=== PATIENT | female | born 1980 | race African-American/Black ===

== ENCOUNTER 2017-03-22 12:30 | Emergency (ER) | payer MEDICARE, MEDICAID | END 2017-03-22 13:00 | disposition left against medical advice (07) | LOC: ERS 12:30 | DX: Z53.21 Procedure and treatment not carried out due to patient leaving prior to being seen by health care provider (principal) ==

== ENCOUNTER 2017-08-14 12:16 | Emergency (ER) | payer MEDICARE, MEDICAID | END 2017-08-14 13:54 | disposition left against medical advice (07) | LOC: ERS 12:16 | DX: Z53.21 Procedure and treatment not carried out due to patient leaving prior to being seen by health care provider (principal) ==

== ENCOUNTER 2017-08-16 08:01 | Observation (INO) | payer MEDICARE, MEDICAID ==
[2017-08-16 09:13] LABS: #Basophils 0.1 thou/uL (0.0-0.2); #Eosinphils 0.1 thou/uL (0.0-0.7); #Lymphocytes 2.6 thou/uL (1.20-3.40); #Monocytes 0.6 thou/uL (0.11-0.59); #Neutrophils 7.8 thou/uL (1.40-6.50); %Basophils 0.5 % (0.0-1.0); %Eosinophils 0.7 % (0.0-10.0); %Monocytes 5.7 % (0.0-10.0); %Neutrophils 70.1 % (42.0-75.0); Hemoglobin 10.7 g/dL (12.0-16.0); Mean Corpuscular HGB CONC 32.4 g/dL (32.0-36.0); Mean Corpuscular Hemoglobin 24.1 pg (27.0-31.0); Mean Corpuscular Volume 74.2 fl (81.0-99.0); Platelet Count 320 thou/uL (130-400); RBC Distribution Width 15.8 % (11.5-14.5); Red Blood Cell (RBC) Count 4.46 mill/uL (4.20-5.40); White Blood Cell (WBC) Count 11.1 thou/uL (4.8-10.8)
[2017-08-16] MEDS ORDERED: Fentanyl 100 MCG/2 ML VIAL ONE ×2 (09:17→12:19)
[2017-08-16 09:28] LABS: BHCG - Serum Negative (NEGATIVE)
[2017-08-16 09:29] LABS: Pregs Control Background? CLEAR/WHITE (CLR/WHITE); Pregs Control Bar Appear? YES (CONTROL BAR)
[2017-08-16 09:30] LABS: ALT (SGPT) 12 U/L (8-55); AST (SGOT) 15 U/L (5-34); Albumin 3.6 g/dL (3.5-5.0); Alkaline Phosphatase 75 U/L (40-150); Anion Gap 10 mmol/L (10-20); BUN (Urea Nitrogen) 6 mg/dL (7.0-18.7); Bilirubin, Total 0.3 mg/dL (0.2-1.2); CK (CPK) 56 U/L (29-168); Calc. Creatinine Clearance 0 mL/min (70-130); Calcium 8.6 mg/dL (7.8-10.44); Carbon Dioxide 22 mmol/L (22-29); Chloride 106 mmol/L (98-107); Estimated GFR-MDRD Greater than 90; Globulin 4.5 g/dL (2.4-3.5); Glucose 99 mg/dL (70-105); Lipase 12 U/L (8-78); Potassium 3.4 mmol/L (3.5-5.1); Protein, Total 8.1 g/dL (6.0-8.3); Sodium 135 mmol/L (136-145)
[2017-08-16] MEDS ORDERED: Promethazine HCl 25 MG/ML VIAL ONE ×2 (09:37→13:54)
[2017-08-16 09:41] LABS: Hypochromia SLIGHT = 6-15 cells (100X) (0-5/hpf); MDiff Complete? YES; Microcytosis MODERATE=15-30 cells (100X) (0-5/hpf); Polychromasia SLIGHT = 2-3 cells (100X) (0-2/hpf); Target Cells SLIGHT = 2-5 cells (100X) (0-1/hpf)
--- NOTE | 2017-08-16 10:03 | CT ---
CT ABDOMEN AND PELVIS WITH CONTRAST: Date: 08/16/17 HISTORY: Pain. COMPARISON: Ultrasound dated 08/14/17. FINDINGS: There are extensive ground-glass opacities in the lower lobes with subpleural reticulation. There is mild dilatation of the esophagus. There is a cystic mass in the right adnexa. This is similar to the recent ultrasound examination give n differences in technique. This measures approximately 7.7 x 6.2 x 7.0 cm with some peripheral enhan cing septations concerning for low grade malignant process. No dilated loops of large or small bowel. Contrast seen throughout the large bowel. Aortoiliac contour is nonaneurysmal. The liver, gallbladder, and spleen are unremarkable. There are m ultiple hypodensities within the medulla of both kidneys. Skeleton is unremarkable. IMPRESSION: 1. Large right adnexal mass with peripheral enhancing septations. Overall, this mass measures 7.7 x 6.2 x 7.0 cm, concerning for a malignant process. Gynecologic consultation recommended. 2. Normal appendix. 3. Trace free fluid in the pelvis. 4. Multiple bilateral renal hypodensities. Follow-up ultrasound recommended. POS: [facility]
[2017-08-16 10:31] LABS: Bilirubin Negative (Negative); Blood, Urine Negative (Negative); Clarity CLEAR (Clear); Glucose, Urine (Dipstick) Negative (Negative); Leukocyte Negative (Negative); Nitrite Negative (Negative); Protein, Urine (Dipstick) Negative (Neg-Trace); Specific Gravity, Urine 1.022 (1.002-1.036); pH, Urine 6.5 (5.0-9.0)
[2017-08-16] MEDS ORDERED: Ketorolac Tromethamine 30 MG/ML VIAL ONE (12:19)
[2017-08-16] MEDS ORDERED: Lorazepam 2 MG/ML VIAL ONE (12:19)
--- NOTE | 2017-08-16 13:25 | ULT ---
ULTRASOUND PELVIC ULTRASOUND TRANSVAGINAL DOPPLER DUPLEX: DATE: 08-16-17 HISTORY: 36-year-old female with pelvic pain. Abnormal CT. TECHNIQUE: Transabdominal transducer used to evaluate intrapelvic contents using the urinary bladder as an acous tic window. Endovaginal transducer used to visualize intrapelvic contents in greater detail. Color fl ow Doppler and Pulsed Doppler spectral waveform analysis of ovaries. FINDINGS: The uterus is 8.5 x 4 x 3.5 cm. Abutting the right side of the uterus, there is a large thin-walled cystic mass measuring approximate ly 7 x 7 x 6.5 cm. Ovarian tissues is not visualized, either on the right or left, and therefore no f low could be documented in the ovaries. There is a small amount of free fluid in the cul-de-sac. Endo metrial stripe is poorly visualized. No obvious large uterine fibroid is visualized. The large right adnexal cystic mass is better visualized on the CT than on this ultrasound. Further evaluation is aviles ited because of shadowing from bowel gas obscuring portions of the pelvis, and also due to patient's limited ability to tolerate the transvaginal ultrasound due to pain. IMPRESSION: Large right adnexal cystic lesion. Unable to rule in or rule out ovarian torsion. This is better odalis acterized on the CT. Please read the report of that CT. Recommend SEWER HAND consultation. EDILIA Rushing POS: [facility]
[2017-08-16 16:50] VITALS: BMI 29.6
[2017-08-16] MEDS ORDERED: Ondansetron HCl/PF 4 MG/2 ML Vial IVP PRN (17:54)
[2017-08-16] MEDS ORDERED: Ondansetron ODT 4 MG TAB SL PRN (17:54)
[2017-08-16] MEDS ORDERED: Sodium Chloride 0.9% 1,000 ML IV SCH (17:54)
[2017-08-16] MEDS: Fentanyl 100 MCG/2 ML VIAL SLOW IVP PRN ×3 (18:03→22:22)
[2017-08-16] MEDS: Lactated Ringer's 1,000 ML IV SCH (20:17)
[2017-08-16] MEDS ORDERED: ALPRAZolam 1 MG TAB PO SCH (22:15)
[2017-08-16] MEDS: Promethazine 25 MG TAB PO PRN (22:23)
--- NOTE | 2017-08-16 22:23 | CON ---
DATE OF CONSULTATION: 08/16/2017 HISTORY OF PRESENT ILLNESS: The patient is a 36-year-old female with a past medical history signific ant for scleroderma and anxiety, who presented to the ER with a 1-week history of acute abdominal amaury n. She was previously seen at the [facility] several days previous and discharge d. Patient reports the pain came on suddenly and has been unrelenting. She does have a history of p elvic abdominal pain resulting in 2014 and laparoscopic surgery and removal of an adnexal mass on the left side with the pathology reading a serous cystadenoma. Patient in her workup in the emergency r oom was noted to have a 6.5 cm mass on the right side, stemming from the area that she is having pain and HOTBED TRANSFER OPERATOR was contacted. The patient denies any recent trauma, fall, illness, fever, headache, radha st pain, shortness of breath. She has intermittent nausea, for which she has Phenergan at home. Elizabeth kunz takes hydrocodone 10 every 4-6 hours for chronic pain due to the scleroderma and is on Xanax. PAST MEDICAL HISTORY: Significant for scleroderma, anxiety, and history of left adnexal mass with pe lvic pain. PAST SURGICAL HISTORY: The patient had laparoscopic left salpingo-oophorectomy, multiple amputations of digits and parts of digits due to complications of her scleroderma, 2 previous C-sections, and garces s had multiple GI endoscopies with biopsy. ALLERGIES: DEMEROL, MORPHINE, TOMATOES, and TRAMADOL. The patient reports that she had a code blue called on her when she took DEMEROL and had seizures with MORPHINE and TRAMADOL. CURRENT MEDICATIONS: Phenergan 25 mg p.o. p.r.n., hydrocodone 10/325 one tablet every 6 hours as nee ded for pain and Xanax 2 mg p.o. t.i.d. REVIEW OF SYSTEMS: Per HPI. PHYSICAL EXAMINATION: VITAL SIGNS: Blood pressure 125/71, temperature 98.3, pulse of 93, respiratory rate 18, O2 sats of 9 8%. GENERAL: She appeared calm, but very concerned that she was given a preliminary discussion about the possibility of malignancy due to radiologic dictation. The patient, otherwise, was cooperative and pleasant to interact with. HEAD: Normocephalic, atraumatic. LUNGS: Clear to auscultation bilaterally. HEART: Regular rate and rhythm. ABDOMEN: A little protuberant and a little firm with a little tenderness in the upper quadrants main ly in the lower quadrants, particularly the right side. GENITOURINARY EXAM: Has been deferred. LABORATORY FINDINGS: White count is 11.1, hemoglobin 10.7, hematocrit 33.1, platelets of 320,000. S odium of 135, potassium of 3.4, chloride of 106, BUN of 6, creatinine of 0.67, calcium of 8.6, AST of 15, ALT of 12. Lipase of 12. CA-125 of 7.3. HCG negative. Urinalysis negative for protein, keton es, nitrites, or leukocyte esterase. Pelvic CT shows a large right adnexal mass with peripheral enha ncing septations and pelvic ultrasound shows a right adnexal cyst about 7 cm with a small amount of f ree fluid. ASSESSMENT AND PLAN: The patient is a 36-year-old female with a 1-week history of pelvic pain. The patient has had multiple visits to the ER. Given the CA-125 of 7.5 and an ultrasound that shows a si mple cystic structure, the likelihood of malignancy is very low. Reviewing the previous surgical not es and pathology, this process likely is a repeat of her previous pelvic pain and pathology a serous cystadenoma. Patient has been admitted for pain control and she does not appear to have added contro l pain and is able to ambulate, go to the bathroom, and have a fairly normal conversation without any little difficulty. I have spoken to her primary HOTBED TRANSFER OPERATOR, Dr. Echols, who performed surgery a couple years ago and have discussed her case. She has agreed to evaluate her tomorrow morning for possible surgery. I have placed the patient on the surgical schedule and made her n.p.o. tonight. Dr. Dooley will be the HOTBED TRANSFER OPERATOR hospitalist on duty tomorrow for backup to assist Dr. Echols as needed.
[2017-08-17] MEDS: Fentanyl 100 MCG/2 ML VIAL SLOW IVP PRN ×2 (01:36→04:15)
[2017-08-17] MEDS: Lactated Ringer's 1,000 ML IV SCH ×3 (03:57→21:17)
[2017-08-17] MEDS ORDERED: Fentanyl 100 MCG/2 ML VIAL SLOW IVP PRN (07:51)
--- NOTE | 2017-08-17 08:09 | PDOC.EVN ---
Event Note - Event Note Event Note: Ms Walden is a 36 y/o AAF well known to me. with scleroderma-skin only. Previous LSO for large left adnexal cyst in 2014. Right ovary was normal at that time except for inflammatory changes. Noted to have recfent pain and 7 cm simp,le cystic right adnexal mass. CA-125 7... She is requiring fentanyl for pain. Plan is to proceed with diagnostic laprascopy with rempvsl of cystic structure and lysis of adhesions if indicated. ovarian preservation will be attempted if possible.
[2017-08-17] MEDS ORDERED: CEFAZOLIN/Water 2 GM/20 ML SYRINGE SLOW IVP SCH (08:15)
[2017-08-17] MEDS ORDERED: CEFAZOLIN/Water 2 GM/20 ML SYRINGE ONE (08:57)
[2017-08-17] MEDS ORDERED: ALPRAZolam 1 MG TAB PO SCH ×2 (09:00→18:45)
[2017-08-17] MEDS ORDERED: Bupivacaine HCl 0.5%/Epinephrine 1:200,000/PF 30 ml Vial ONE (09:30)
[2017-08-17] MEDS ORDERED: HYDROmorphone 0.5 MG/0.5 ML SYRINGE ONE ×3 (09:35→12:55)
[2017-08-17] MEDS ORDERED: Fentanyl 100 MCG/2 ML VIAL ONE (09:35)
[2017-08-17] MEDS ORDERED: Acetaminophen/Codeine 30-300mg Tablet PO PRN (11:32)
[2017-08-17] MEDS ORDERED: Promethazine HCl 25 MG/ML VIAL IM PRN ×2 (11:38→12:31)
[2017-08-17] MEDS ORDERED: Ondansetron HCl/PF 4 MG/2 ML Vial IVP PRN ×2 (11:38→12:31)
[2017-08-17] MEDS ORDERED: HYDROmorphone 2 MG/ML VIAL SLOW IVP PRN (11:38)
[2017-08-17] MEDS ORDERED: Promethazine HCl 25 MG/ML VIAL SLOW IVP PRN (11:38)
--- NOTE | 2017-08-17 12:11 | OP ---
DATE OF PROCEDURE: 08/17/2017 PREOPERATIVE DIAGNOSES: 1. A 36-year-old -[place] female with previous LSO for a large adnexal cyst now at 7 cm righ t adnexal cyst with acute pelvic pain. 2. Medical history significant for scleroderma. POSTOPERATIVE DIAGNOSES: 1. A 36-year-old -[place] female with previous LSO for a large adnexal cyst now at 7 cm righ t adnexal cyst with acute pelvic pain. 2. Medical history significant for scleroderma. PROCEDURES PERFORMED: 1. Diagnostic laparoscopy with lysis of adhesions. 2. Removal of right adnexal cyst with ovary and tube complex. SURGEON: Taryn Echols M.D. C WPF DEVELOPER SURGEON: Chapin Dooley M.D. ANESTHESIA: General endotracheal. ESTIMATED BLOOD LOSS: Less than 10 mL. COMPLICATIONS: None. COUNTS: Correct x2. ANTIBIOTICS: Two grams of Ancef carton making machine operator to the operating room. PATHOLOGY: Right adnexal cyst, complex. FINDINGS: 1. Left tube and ovary surgically absent from prior surgery. 2. Omental adhesions to the lower abdominal wall, status post adhesiolysis. 3. Right adnexal mass with complexity of cystic change in the ovary and tube complex with edema. No excrescences or papillations are noted. No abnormal fluid in the pelvis noted. 4. Serous yellowish fluid drained from the adnexal cyst. The adnexal cyst noted with no bloody comp onent. DISPOSITION: Recovery room, stable. DESCRIPTION OF OPERATIVE PROCEDURE: The patient previously received informed consent in regards to s john. She is taken back to the operating room where she received a general endotracheal anesthetic agent. She was placed in the dorsal lithotomy position with use of Ajith stirrups, prepped and drap ed in usual sterile fashion. Talamantes catheter was placed. A sidearm speculum was inserted in the vagi na. Anterior lip of cervix was grasped with single tooth tenaculum. A Hulka uterine manipulator was then placed. Tenaculum and speculum removed. Attention was then turned to the abdomen where perspe ctive trocar sites were infiltrated with 0.5% Marcaine with epinephrine. A supraumbilical incision w as made approximately 10 mm vertical direction and Veress needle was entered into the peritoneal cavi ty. There was some elevated pressure noted and patient's abdomen seemed already somewhat distended. Therefore, direct entry with Visiport was carried out. The layers were seen as through the fat down to the fascia and then maneuvered into the peritoneal cavity and the abdomen was then insufflated in this manner. The 5 mm scope was then replaced into the supraumbilical trocar site and inspection of the bowel beneath the area was negative for any bowel injury or any bleeding noted. An additional r ight lower quadrant 5 mm trocar was placed under direct visualization and a left lower quadrant troca r was placed in left under direct visualization. Atraumatic grasper was then utilized to grasp the a nterior wall of omental adhesions through the left port and then my assistant pastry chef then used EndoShears wi th cautery to dissect the adhesions of the omentum and atraumatic planes with cautery and direct cutt ing releasing the adhesions offering better visualization in the operative site. The uterus was elev ated with a manipulator and previously mentioned findings were noted. There essentially appeared to be no normal appearing ovarian tissue visualized and the tube was noted to be edematous congealed wit h the right adnexal cyst. Therefore, the cyst was decompressed to aid for lateralization and mobiliz ation against the right pelvic sidewall under direct visualization and needle was placed in the depen dent portion of the cyst and 30 mL of serous fluid was aspirated under direct visualization. This ma de the cyst more floppy and more amenable to mobilization. My assistant pastry chef then grasped the adnexal cys t with an atraumatic grasper and then a LigaSure device was placed in the left lower quadrant port. The uteroovarian ligament region of the cyst was then coagulated and transected along with portion of the IP ligament component. Serial coagulation and transection and removed the cyst in its entirety. The pedicle line was noted to be hemostatic. There may have been some residual normal appearing ad nexal ovarian tissue remaining and this was left behind since hemostasis was confirmed. An 11 mm trocar was placed in the midline suprapubic site just left of the midline under direct visua lization. The Endobag was then placed through this and then the specimen was placed in the Endobag. The incision over the 11 mm skin incision was extended enabling us to extend the fascial incision wi th my finger to allow for removal of the Endobag with the contents intact. GraNee trocar closure sys tem device was then utilized to close the midline trocar defect under direct visualization with good approximation of the fascia with 0 Vicryl. The excess carbon dioxide gas was released after the pelv is had been irrigated and suctioned again confirming hemostasis. The trocar sites were then closed i n the skin ports with 4-0 Monocryl subcuticular with Dermabond. The Procurify uterine manipulator was re moved. The patient was awakened from anesthesia and transferred to the recovery in stable condition.
[2017-08-17] MEDS ORDERED: diphenhydrAMINE 50 MG/ML VIAL IM PRN (12:31)
[2017-08-17] MEDS ORDERED: Zolpidem Tartrate 5 MG TAB PO PRN (12:31)
[2017-08-17] MEDS ORDERED: diphenhydrAMINE 25 MG CAP PO PRN (12:31)
[2017-08-17] MEDS ORDERED: diphenhydrAMINE 50 MG/ML VIAL IVP PRN (12:31)
[2017-08-17] MEDS ORDERED: Naloxone HCl 0.4 mg/ml Vial IV PRN (12:31)
[2017-08-17] MEDS ORDERED: Fentanyl 5000 MCG/250 ML CADD IVPB PRN (12:31)
[2017-08-17] MEDS ORDERED: Communication Order-Pharmacy FS SCH (12:45)
[2017-08-17] MEDS ORDERED: fentaNYL Citrate/PF 2,000 MCG in Sodium Chloride 0.9% 60 ML IV PRN (12:45)
--- NOTE | 2017-08-17 14:32 | HP ---
DATE OF ADMISSION: 08/16/2017 CHIEF COMPLAINT: Abdominal pain. HISTORY OF PRESENT ILLNESS: Ms. Walden is a 36-year-old -[place] female with past medical his tory of scleroderma, chronic pain, came because of abdominal pain started a week ago. The patient st ates the pain is mainly in the right side and also in suprapubic area. The patient states she had a left ovarian cyst removed in the past, but this pain started 1 week ago and became worse now. She wa s seen in the [facility] and she was evaluated and released. The pain was gettin g worse. She also has some nausea and no vomiting. She claims she is not able to sleep because of t his pain, but no fever, no shortness of breath, no cough. The patient came to the [facility] e she was evaluated and she had abdominopelvic CT and ultrasound done, which showed right adnexal mas s, which is cystic enlarged measuring around 7 x 7 cm. Radiologist felt it is concerning for maligna nt process, so patient is being admitted for further evaluation and management. PAST MEDICAL HISTORY: 1. Long history of scleroderma. 2. Chronic pain. 3. Anxiety disorder. 4. History of left adnexal mass. PAST SURGICAL HISTORY: Status post laparoscopic left salpingo-oophorectomy 2 years ago, status post multiple amputations of digits and parts of digits due to complications of scleroderma, status post 2 C-sections, status post GI endoscopy with a biopsy. CURRENT MEDICATIONS: The patient is on Phenergan p.r.n., hydrocodone 10/325 q.i.d. p.r.n., Xanax 2 m g t.i.d. ALLERGIES: TRAMADOL, MORPHINE, DEMEROL. She states she has seizures with DEMEROL and TRAMADOL. FAMILY HISTORY: Nothing of interest. SOCIAL HISTORY: The patient lives with family. No history of smoking. No history of alcohol. REVIEW OF SYSTEMS: CARDIOVASCULAR: No chest pain. No shortness of breath. RESPIRATORY: No fever or cough. GASTROINTESTINAL: Has abdominal pain and nausea, no vomiting. CENTRAL NERVOUS SYSTEM: N o headache, no dizziness. PHYSICAL EXAMINATION: GENERAL: The patient is alert, awake, oriented x3. VITAL SIGNS: Temperature 98, pulse 93, respirations 20, blood pressure 120/70. HEENT: Head is normocephalic, atraumatic. Pupils are equal and reactive to light. Nasopharynx is p megan and dry. Hard and soft palate, no lesions. SKIN: Skin turgor decreased. NECK: Supple. No JVD. LUNGS: Bilateral air entry, no rales, no rhonchi. HEART: S1 and S2 regular. ABDOMEN: Soft. There is tenderness present in the right lower quadrant. Bowel sounds present. CENTRAL NERVOUS SYSTEM: No focal deficits. LABORATORY DATA AND IMAGING DATA: CBC shows WBC 11, hemoglobin 10.7, hematocrit 33, and platelets 32 0. Metabolic panel; sodium 135, potassium 3.4, chloride 106, CO2 of 20, urea nitrogen 6, creatinine 0.6, glucose 99. Urinalysis negative. CT of the abdomen showed large adnexal mass measuring 7.3 x 7 .97 cm. Ultrasound of the abdomen and pelvis also confirmed the cystic mass in the right adnexa. ASSESSMENT: 1. Right ovarian mass, cystic, rule out malignancy, severe intractable abdominal pain. 2. Scleroderma. 3. Chronic pain. 4. Anxiety disorder. PLAN: 1. Vital signs q.4 hours. 2. Activity: As tolerated. 3. Allergies: Multiple including MORPHINE, TRAMADOL, DEMEROL. 4. IV fluids, D5 half at 80 mL per hour, fentanyl IVP 100 mg q.12 hours p.r.n., and continue home me dications. 5. Diet: NPO. 6. Activity: As tolerated. 7. ARCHITECTURE INTERN consult.
[2017-08-17] MEDS ORDERED: Lidocaine 1% PF 5 ML VIAL ONE (15:34)
[2017-08-17] MEDS ORDERED: PROPOFOL 200 MG/20 ML VIAL ONE (15:34)
[2017-08-17] MEDS ORDERED: Glycopyrrolate 0.2 MG/ML 5 ML SYRINGE ONE (15:34)
[2017-08-17] MEDS ORDERED: Ondansetron HCl/PF 4 MG/2 ML Vial ONE (15:34)
[2017-08-17] MEDS: Potassium Chloride 20 MEQ TAB PO SCH ×2 (16:20→19:48)
[2017-08-17] MEDS ORDERED: Acetaminophen 500 MG TAB PO PRN (16:53)
[2017-08-17] MEDS: Ketorolac Tromethamine 30 MG/ML VIAL IVP PRN (17:31)
[2017-08-17] MEDS: Promethazine HCl 25 MG/ML VIAL SLOW IVP PRN ×2 (17:32→22:30)
[2017-08-18] MEDS: Ketorolac Tromethamine 30 MG/ML VIAL IVP PRN (01:31)
[2017-08-18] MEDS: Promethazine HCl 25 MG/ML VIAL SLOW IVP PRN ×4 (02:34→21:19)
[2017-08-18 05:16] LABS: Anion Gap 10 mmol/L (10-20); BUN (Urea Nitrogen) 5 mg/dL (7.0-18.7); Calc. Creatinine Clearance 131 mL/min (70-130); Calcium 8.7 mg/dL (7.8-10.44); Carbon Dioxide 23 mmol/L (22-29); Chloride 107 mmol/L (98-107); Estimated GFR-MDRD Greater than 90; Glucose 95 mg/dL (70-105); Potassium 3.4 mmol/L (3.5-5.1); Sodium 137 mmol/L (136-145)
[2017-08-18 05:37] LABS: Eosinophils 2 % (0-10); Hemoglobin 9.6 g/dL (12.0-16.0); Lymphocytes 35 % (21-51); MDiff Complete? YES; Mean Corpuscular HGB CONC 33.5 g/dL (32.0-36.0); Mean Corpuscular Hemoglobin 24.2 pg (27.0-31.0); Mean Corpuscular Volume 72.4 fl (81.0-99.0); Mean Platelet Volume 9.1 fL (7.4-10.4); Monocytes 4 % (0-10); Neutrophil 58 % (42-75); Platelet Count 273 thou/uL (130-400); RBC Distribution Width 15.8 % (11.5-14.5); Red Blood Cell (RBC) Count 3.97 mill/uL (4.20-5.40); White Blood Cell (WBC) Count 8.9 thou/uL (4.8-10.8)
[2017-08-18] MEDS: ALPRAZolam 1 MG TAB PO SCH ×4 (07:35→21:19)
--- NOTE | 2017-08-18 09:32 | PDOC.EVN ---
Event Note - Event Note Event Note: States she feels better this AM. RLQ pain resolved. Ambulating and voiding. Tolerating liquids/solids ok. reports passing some flatus. O: Temp 98.1/P 79/R18/133/86 abdomen-trocar sites Clean/dry/intact. no rebound. hypoactive bowel sound. A/P:post op day 1 from laparoscopic RSO. recovering satisfactoriliy. Increase ambulation. Await full return of bowel function. Possible d/ch later this PM. Pain control with PCP Dr Abraham since he manages her chronic pain issues due to her scleroderma history. If discharged to day--will f/u with post op check in 2 weeks.
[2017-08-18] MEDS ORDERED: Potassium Chloride 20 MEQ in Sodium Chloride 0.9% 250 ML 250 ML IVPB SCH (11:00)
[2017-08-18] MEDS: Promethazine 25 MG TAB PO PRN (12:05)
[2017-08-18] MEDS ORDERED: Potassium Chloride 20 MEQ TAB PO SCH (12:30)
[2017-08-19] MEDS: Promethazine HCl 25 MG/ML VIAL SLOW IVP PRN ×2 (01:51→07:38)
[2017-08-19 07:54] VITALS: BP 135/92; TEMP 98.7
[2017-08-19] MEDS: ALPRAZolam 1 MG TAB PO SCH (08:54)
[2017-08-19] MEDS ORDERED: HYDROcodone/Acetaminophen 10/325 mg Tablet PO PRN ×2 (09:23)
--- NOTE | 2017-08-20 14:16 | DIS ---
DATE OF ADMISSION: 08/16/2017 DATE OF DISCHARGE: 08/19/2017 ADMITTING DIAGNOSES: 1. Right ovarian mass, cystic, rule out malignancy. 2. Severe intractable abdominal pain. 3. Longstanding scleroderma. 4. Chronic pain due to that. 5. Anxiety disorder. FINAL DIAGNOSES: 1. Right ovarian mass status post removal of right adnexal cyst with ovary and tube complex. 2. Status post lysis of adhesion. 3. Intractable abdominal pain, improved. 4. Longstanding scleroderma. 5. Chronic pain. 6. Anxiety disorder. BRIEF SUMMARY OF HOSPITAL COURSE: Ms. Walden is a 36-year-old -[place] female admitted [facility] of acute abdominal pain going on for few days. The patient has severe intractable abdominal pain, found to have right ovarian cystic mass and she was started on IV morphine to control the pain. She was seen by a retrofit installer, who suggested laparoscopic surgery following day. The patient was kept n .p.o. The patient underwent surgery, laparoscopic removal of right ovary cyst along with the ovary a nd tube complex. The patient also had lysis of adhesions. Postoperatively, the patient kept on pain management and PATHOLOGY TECHNICIAN pump for a day and after which it was discontinued and abdominal pain much improv ed. Her pain was improving and the patient is being discharged home. At the time of discharge, she was stable. Her vital signs were stable. Lungs clear. Heart sounds are regular. Abdomen is soft, nontender. Bowel sounds present. DISCHARGE MEDICATIONS: Include Phenergan p.r.n., Xanax 2 mg t.i.d., [place] 10/325 q.i.d. p.r.n., Ambi en 5 mg at bedtime p.r.n. FOLLOWUP: The patient will follow with retrofit installer in couple of weeks and then come to my office in 2 weeks.
== END 2017-08-19 11:42 | disposition home or self-care (01) ==
LOC: EEVIPCON 08:01 → ERS 08:01 → 2SW 16:25
PROVIDERS: ADMIT Internal Medicine; ATTEND Internal Medicine
PROC: 0DNW4ZZ Release Peritoneum, Percutaneous Endoscopic Approach (ICD-10-PCS; principal; 2017-08-16)
PROC: 0UT04ZZ Resection of Right Ovary, Percutaneous Endoscopic Approach (ICD-10-PCS; 2017-08-16)
PROC: 0UT54ZZ Resection of Right Fallopian Tube, Percutaneous Endoscopic Approach (ICD-10-PCS; 2017-08-16)
DX: N83.11 Corpus luteum cyst of right ovary (principal); N83.8 Other noninflammatory disorders of ovary, fallopian tube and broad ligament; M34.9 Systemic sclerosis, unspecified; K66.0 Peritoneal adhesions (postprocedural) (postinfection); G89.29 Other chronic pain; F41.9 Anxiety disorder, unspecified; Z79.899 Other long term (current) drug therapy; Z88.5 Allergy status to narcotic agent; Z91.018 Allergy to other foods; Z90.79 Acquired absence of other genital organ(s); Z90.721 Acquired absence of ovaries, unilateral; Z98.891 History of uterine scar from previous surgery; Z98.890 Other specified postprocedural states
CPT/HCPCS: 49329; 58661; 74177; 76830; 76856; 80048; 80053; 81003; 82550; 83690; 84703; 85025 ×2; 86304; 86850; 86900; 86901; 88305; 96361 ×3; 96365; 96366; 96375; 96376 ×5; 99285; G0378 ×4; J3010 ×2; 36415; J0670; J1170; J1885; J2001; J2060; J2405; J2550; J2704; J3480; J7050; J7120

== ENCOUNTER 2018-03-29 10:28 | Day surgery (SDC) | payer MEDICARE, MEDICAID ==
[~2018-03-29 10:28] MED LIST: ISOVUE-370 76%-LOCM 1 ML ONE
[2018-03-29] MEDS ORDERED: Fentanyl 100 MCG/2 ML VIAL ONE ×5 (11:17→18:11)
[2018-03-29] MEDS ORDERED: Promethazine HCl 25 MG/ML VIAL ONE ×2 (11:18→17:19)
[2018-03-29 11:29] LABS: Bilirubin Negative (Negative); Blood, Urine Negative (Negative); Clarity CLEAR (Clear); Glucose, Urine (Dipstick) Negative (Negative); Leukocyte Negative (Negative); Nitrite Negative (Negative); Protein, Urine (Dipstick) Negative (Neg-Trace); Specific Gravity, Urine 1.007 (1.002-1.036); Urobilinogen 0.2 mg/dL (0.2-1.0); pH, Urine 7.5 (5.0-9.0)
[2018-03-29 11:32] LABS: Pregnancy Test - Urine (BHCG) Negative (Negative); Pregu Control Background? CLEAR/WHITE (CLR/WHITE); Pregu Control Bar Appear? YES (CONTROL BAR); Specific Gravity 1.007 (1.002-1.036)
[2018-03-29] MEDS ORDERED: Lidocaine 1% PF 5 ML VIAL ONE (11:44)
[2018-03-29] MEDS ORDERED: Glycopyrrolate 0.2 MG/ML 5 ML SYRINGE ONE (11:44)
[2018-03-29] MEDS ORDERED: Ketorolac Tromethamine 30 MG/ML VIAL ONE (11:44)
[2018-03-29] MEDS ORDERED: PROPOFOL 200 MG/20 ML VIAL ONE (11:44)
[2018-03-29] MEDS ORDERED: Ondansetron PF 4 MG/2 ML Vial ONE ×2 (11:44→17:07)
[2018-03-29 11:52] LABS: #Basophils 0.1 thou/uL (0.0-0.2); #Lymphocytes 1.7 thou/uL (1.20-3.40); #Monocytes 0.7 thou/uL (0.11-0.59); #Neutrophils 13.6 thou/uL (1.40-6.50); %Basophils 0.4 % (0.0-1.0); %Eosinophils 0.2 % (0.0-10.0); %Lymphocytes 10.5 % (21.0-51.0); %Monocytes 4.1 % (0.0-10.0); %Neutrophils 84.7 % (42.0-75.0); Mean Corpuscular HGB CONC 32.8 g/dL (32.0-36.0); Mean Corpuscular Hemoglobin 25.3 pg (27.0-31.0); Mean Corpuscular Volume 77.1 fL (78.0-98.0); Mean Platelet Volume 8.5 fL (7.4-10.4); Platelet Count 288 thou/uL (130-400); RBC Distribution Width 14.8 % (11.5-14.5); Red Blood Cell (RBC) Count 4.35 mill/uL (4.20-5.40); White Blood Cell (WBC) Count 16.1 thou/uL (4.8-10.8)
[2018-03-29 12:00] LABS: BHCG - Serum Negative (NEGATIVE); Pregs Control Background? CLEAR/WHITE (CLR/WHITE); Pregs Control Bar Appear? YES (CONTROL BAR)
[2018-03-29 12:07] LABS: ALT (SGPT) 17 U/L (8-55); AST (SGOT) 20 U/L (5-34); Albumin 3.5 g/dL (3.5-5.0); Alkaline Phosphatase 74 U/L (40-150); Anion Gap 12 mmol/L (10-20); BUN (Urea Nitrogen) 6 mg/dL (7.0-18.7); Bilirubin, Total 0.4 mg/dL (0.2-1.2); Calc. Creatinine Clearance 0 mL/min (70-130); Calcium 8.6 mg/dL (7.8-10.44); Carbon Dioxide 20 mmol/L (22-29); Chloride 107 mmol/L (98-107); Estimated GFR-MDRD Greater than 90; Globulin 4.8 g/dL (2.4-3.5); Glucose 103 mg/dL (70-105); Lipase 10 U/L (8-78); Potassium 4.1 mmol/L (3.5-5.1); Protein, Total 8.3 g/dL (6.0-8.3); Sodium 135 mmol/L (136-145)
[2018-03-29] MEDS ORDERED: Piperacillin/Tazobactam 4.5 GM VIAL ONE (13:10)
--- NOTE | 2018-03-29 15:27 | CT ---
CT ABDOMEN AND PELVIS WITH CONTRAST: HISTORY: Abdominal pain. COMPARISON: CT 08/16/2017. FINDINGS: There is abnormal articular peripheral articulation in the lower lobes concerning for UIP pattern of pulmonary fibrosis. There is mild dilatation of the esophagus. There are surgical clips along the 2nd portion of the duodenum. Liver, gallbladder, spleen, and pancreas are all unremarkable. The appendix is dilated with periappendiceal inflammation. The adjacent right ureter is also inflame d. The appendix measures up to 9 mm. Small ileocolic lymph nodes are present. Small septated left adnexal hypodensity is present. No dilated loops of large or small bowel. There is mild hyperenhancement of the mucosa of the sigmoi d colon. There are multiple subtle left-sided renal hypodensities too small to fully characterize. No adenopa thy. IMPRESSION: Acute appendicitis without definite evidence of rupture. The appendix extends medially from the cecu m then turns caudad with tip just along the anterior margin of the external iliac artery. POS: [facility]
[2018-03-29] MEDS ORDERED: Bupivacaine/Epinephrine 0.25% 30 ML VIAL ONE (15:38)
--- NOTE | 2018-03-29 18:52 | HP ---
CHIEF COMPLAINT: Right lower quadrant pain. HISTORY OF PRESENT ILLNESS: This is a 37-year-old female with a one-day history of pain in right low er quadrant described as sharp, 8/10. She previously had left and right ovarian cyst removed. The p ain is similar, although more severe in the right side, associated with nausea, no vomiting, no rutledge e in stools. She does have chronic diffuse pain secondary to her scleroderma and takes Nowata 4 times a day and she is on contract with Dr. Babcock for that. PAST MEDICAL HISTORY: Scleroderma, chronic pain, arthritis, seizures. PAST SURGICAL HISTORY: x2, ovarian cyst. MEDICINES TAKEN DAILY: Nowata, Xanax, Phenergan. ALLERGIES: DEMEROL, MORPHINE, TOMATO, TRAMADOL. SOCIAL HISTORY: No smoking, alcohol, or other drugs. REVIEW OF SYSTEMS: Otherwise, negative unless described above. PHYSICAL EXAMINATION: VITAL SIGNS: Blood pressure is 139/92, pulse 106, respirations 22. She is afebrile. HEENT: Sclerae are anicteric. Oropharynx clear. NECK: No lymphadenopathy. CHEST: Clear. HEART: Regular rate and rhythm. ABDOMEN: Soft, tender in right lower quadrant, localized guarding, no rebound, no abdominal hernias. EXTREMITIES: No ischemia or edema to extremities. LABORATORY DATA: Sodium 135, potassium 4.1, creatinine 0.73. White cell count is 16, hemoglobin of 11. CT scan shows acute appendicitis. ASSESSMENT: Acute appendicitis. PLAN: Laparoscopic appendectomy. Risks, benefits, alternatives discussed. She gave consent. We wi ll do this today.
--- NOTE | 2018-03-29 18:54 | OP ---
DATE OF PROCEDURE: 03/29/2018 PREOPERATIVE DIAGNOSIS: Acute appendicitis. POSTOPERATIVE DIAGNOSIS: Acute appendicitis. PROCEDURE: Laparoscopic appendectomy. SURGEON: Jona Meyers M.D. ANESTHESIA: General. ESTIMATED BLOOD LOSS: None. COMPLICATIONS: None. SPECIMEN: Appendix. FINDINGS: Appendicitis. TECHNIQUE: Patient was taken to the operating room and placed on supine table. After general anesth etic was obtained, the abdomen was prepped and draped in a sterile fashion. A Talamantes catheter had bee n placed. Curved incision was made above the umbilicus. Cautery was used to dissect down to and sco re the fascia. Abdominal cavity was entered bluntly using a Beatriz clamp. Holding stitch of PDS was placed on each side of the fascia. Alex trocar was placed. High-flow pneumoperitoneum was obtaine d. A suprapubic 5 mm port and left lower quadrant port were placed under direct visualization. The cecum was rolled over to reveal acute appendicitis. A window was made at the base of the appendix an d mesoappendix Laparoscopic stapler was fired across the base of the appendix. A vascular reload fi red across the mesoappendix. Appendix was placed in an Endocatch bag and brought out through the Has son. All port sites were infiltrated using local anesthetic. All ports were removed under direct vi sualization without bleeding. The pneumoperitoneum was let down. PDS was used to close the fascial defect above the umbilicus. All incisions were irrigated and closed using 4-0 Monocryl and Dermabond . Patient went to recovery room in stable condition. All instruments counts, needle counts, and lap counts were correct.
== END 2018-03-29 18:55 | disposition home or self-care (01) ==
LOC: ERS 10:28 → SDC 14:35
PROVIDERS: ATTEND Surgery
PROC: 0DTJ4ZZ Resection of Appendix, Percutaneous Endoscopic Approach (ICD-10-PCS; principal; 2018-03-29)
DX: K35.80 Unspecified acute appendicitis (principal); M19.90 Unspecified osteoarthritis, unspecified site; R56.9 Unspecified convulsions; M34.9 Systemic sclerosis, unspecified; Z79.899 Other long term (current) drug therapy; Z88.5 Allergy status to narcotic agent; Z91.018 Allergy to other foods
CPT/HCPCS: 36415; 74177; 80053; 81003; 81025; 83690; 84703; 85025; 87086; 88304; 96365; 96367; 96375; 96376; J1885; J2001; J2405; J2543; J2550; J2704; J3010

== ENCOUNTER 2018-07-04 10:43 | Emergency (ER) | payer MEDICARE, MEDICAID ==
[2018-07-04] MEDS ORDERED: Aspirin Chewable 81 MG TAB ONE (12:28)
[2018-07-04] MEDS ORDERED: Lorazepam 2 MG/ML VIAL ONE (12:29)
[2018-07-04 12:33] LABS: Hemoglobin 11.1 g/dL (12.0-16.0); Mean Corpuscular HGB CONC 32.7 g/dL (32.0-36.0); Mean Corpuscular Hemoglobin 24.1 pg (27.0-31.0); Mean Corpuscular Volume 73.5 fL (78.0-98.0); Mean Platelet Volume 8.4 fL (7.4-10.4); Platelet Count 309 thou/uL (130-400); RBC Distribution Width 14.6 % (11.5-14.5); Red Blood Cell (RBC) Count 4.62 mill/uL (4.20-5.40); White Blood Cell (WBC) Count 8.3 thou/uL (4.8-10.8)
[2018-07-04 12:39] LABS: BHCG - Serum Negative (NEGATIVE); Pregs Control Background? CLEAR/WHITE (CLR/WHITE); Pregs Control Bar Appear? YES (CONTROL BAR)
[2018-07-04 12:53] LABS: #Lymphocytes 2.1 thou/uL (1.20-3.40); #Monocytes 0.4 thou/uL (0.11-0.59); #Neutrophils 5.8 thou/uL (1.40-6.50); %Basophils 0.2 % (0.0-1.0); %Eosinophils 0.4 % (0.0-10.0); %Lymphocytes 25.2 % (21.0-51.0); %Monocytes 4.7 % (0.0-10.0); %Neutrophils 69.5 % (42.0-75.0); ALT (SGPT) 22 U/L (8-55); AST (SGOT) 26 U/L (5-34); Albumin 3.8 g/dL (3.5-5.0); Alkaline Phosphatase 83 U/L (40-150); Anion Gap 12 mmol/L (10-20); Anisocytosis SLIGHT = 6-15 cells (100X) (0-5/hpf); BUN (Urea Nitrogen) 8 mg/dL (7.0-18.7); Bilirubin, Total 0.3 mg/dL (0.2-1.2); Calc. Creatinine Clearance 0 mL/min (70-130); Calcium 8.9 mg/dL (7.8-10.44); Carbon Dioxide 23 mmol/L (22-29); Chloride 106 mmol/L (98-107); Estimated GFR-MDRD Greater than 90; Globulin 4.8 g/dL (2.4-3.5); Glucose 88 mg/dL (70-105); Hypochromia SLIGHT = 6-15 cells (100X) (0-5/hpf); MDiff Complete? YES; Microcytosis SLIGHT = 6-15 cells (100X) (0-5/hpf); Platelet Morphology Comment Appears Adequate; Potassium 3.9 mmol/L (3.5-5.1); Protein, Total 8.6 g/dL (6.0-8.3); Sodium 137 mmol/L (136-145)
--- NOTE | 2018-07-04 14:54 | CT ---
CT AORTOGRAM CHEST AND ABDOMEN WITH CONTRAST: Date: 07/04/18 Multiple axial tomograms obtained through the chest and abdomen following an aortogram protocol with multiplanar reconstructions and 3D postprocessing. INDICATION: Chest pain. FINDINGS: No evidence of thoracic or abdominal aortic dissection. No evidence of thoracic aortic or abdominal a ortic aneurysm. Aortic branches, including celiac artery, superior mesenteric artery, and renal arteries appear unrem arkable. Aortic bifurcation is unremarkable. No evidence of atherosclerotic change. The lung garner show chronic parenchymal changes which are prominent for patient's age. Peripheral in terstitial thickening and early bled formation is seen along the pleural surfaces bilaterally with bl ebs and pleural thickening with evidence of early honeycombing in the posterior lung bases. The liver, spleen, and pancreas appear unremarkable given the arterial phase enhancement. Bowel loops are unremarkable. Adrenal glands are unremarkable. There are two low density lesions in the left kidney suggesting cyst s, measuring approximately 1.5 cm. Mild incomplete rotation of the left kidney. IMPRESSION: 1. No evidence of thoracic or abdominal aortic dissection or aneurysm. 2. Prominent chronic lung parenchymal changes for patient's age. 3. There are two cystic lesions in the left kidney. POS: [facility]
== END 2018-07-04 14:22 | disposition home or self-care (01) ==
LOC: ERS 10:43
DX: R07.89 Other chest pain (principal); F41.9 Anxiety disorder, unspecified; F32.9 Major depressive disorder, single episode, unspecified
CPT/HCPCS: 36415; 71275; 80053; 83880; 84484; 84703; 85025; 93005; 96374; J2060; Q9966

== ENCOUNTER 2020-11-03 10:07 | Emergency (ER) | payer MEDICARE, MEDICAID ==
[2020-11-03] MEDS ORDERED: Ketorolac Tromethamine 30 MG/ML VIAL ONE (11:40)
== END 2020-11-03 12:45 | disposition home or self-care (01) ==
LOC: ERS 10:07
DX: S93.502A Unspecified sprain of left great toe, initial encounter (principal); M19.90 Unspecified osteoarthritis, unspecified site; W18.09XA Striking against other object with subsequent fall, initial encounter
CPT/HCPCS: 96372; J1885

== ENCOUNTER 2020-11-24 12:56 | Outpatient (CLI) | payer MEDICARE, MEDICAID | END 2020-11-24 12:57 | disposition home or self-care (01) | LOC: BICMRI 12:56 | PROVIDERS: ATTEND Nurse Practitioner Family | DX: M79.672 Pain in left foot (principal) ==

== ENCOUNTER 2023-07-07 20:08 | Emergency (ER) | payer MEDICARE, MEDICAID ==
[2023-07-07 21:19] LABS: #Eosinphils 0.1 thou/uL (0.0-0.7); #Monocytes 0.7 thou/uL (0.11-0.59); #Neutrophils 8.7 thou/uL (1.40-6.50); %Basophils 0.3 % (0.0-1.0); %Eosinophils 0.8 % (0.0-10.0); %Lymphocytes 18.3 % (21.0-51.0); %Monocytes 5.9 % (0.0-10.0); %Neutrophils 74.4 % (42.0-75.0); Hematocrit 33.6 % (36.0-47.0); Hemoglobin 11.3 g/dL (12.0-16.0); Mean Corpuscular HGB CONC 33.6 g/dL (32.0-36.0); Mean Corpuscular Hemoglobin 24.9 pg (27.0-31.0); Mean Platelet Volume 10.4 fL (7.4-10.4); Platelet Count 307 10x3/uL (130-400); RBC Distribution Width 15.8 % (11.5-14.5); Red Blood Cell (RBC) Count 4.54 mill/uL (4.20-5.40); White Blood Cell (WBC) Count 11.7 10x3/uL (4.8-10.8)
[2023-07-07 21:32] LABS: BHCG - Serum Negative (NEGATIVE); Pregs Control Background? CLEAR/WHITE (CLR/WHITE); Pregs Control Bar Appear? YES (CONTROL BAR)
[2023-07-07 21:35] LABS: INR-International Normal Ratio 1.1; PTT 33.6 sec (22.9-36.1); Prothrombin Time 14.3 sec (12.0-14.7)
[2023-07-07 21:44] LABS: ALT (SGPT) 10 U/L (8-55); AST (SGOT) 15 U/L (5-34); Albumin 4.1 g/dL (3.5-5.0); Alkaline Phosphatase 77 U/L (40-110); Anion Gap 12 mmol/L (10-20); BUN (Urea Nitrogen) 10 mg/dL (7.0-18.7); Bilirubin, Total 0.5 mg/dL (0.2-1.2); Calc. Creatinine Clearance 0 mL/min (70-130); Calcium 9.3 mg/dL (7.8-10.44); Carbon Dioxide 26 mmol/L (22-29); Chloride 105 mmol/L (98-107); Estimated GFR 83; Globulin 4.8 g/dL (2.4-3.5); Glucose 86 mg/dL (70-105); Lipase 15 U/L (8-78); Potassium 3.3 mmol/L (3.5-5.1); Protein, Total 8.9 g/dL (6.0-8.3); Sodium 140 mmol/L (136-145)
[2023-07-07] MEDS ORDERED: Acetaminophen 500 MG TAB ONE (22:22)
[2023-07-07] MEDS ORDERED: fentaNYL 50 mcg/mL 1 mL Vial ONE (22:26)
== END 2023-07-08 01:12 | disposition home or self-care (01) ==
LOC: ERS 20:08
DX: M79.642 Pain in left hand (principal); R59.0 Localized enlarged lymph nodes; V89.2XXA Person injured in unspecified motor-vehicle accident, traffic, initial encounter
CPT/HCPCS: 70450; 71260; 72125; 73130; 74177; 80053; 83690; 84703; 85025; 85610; 85730; 86850; 86900; 86901; 93005; J3010; 96374

== ENCOUNTER 2024-02-12 12:14 | Emergency (ER) | payer MEDICARE, MEDICAID ==
[2024-02-12 13:27] LABS: Pregnancy Test - Urine (BHCG) Negative (Negative); Pregu Control Background? CLEAR/WHITE (CLR/WHITE); Pregu Control Bar Appear? YES (CONTROL BAR); Specific Gravity 1.015 (1.002-1.036)
[2024-02-12 13:32] LABS: Bilirubin Negative (Negative); Blood, Urine 1+ (Negative); CAUTI Indications for Culture Acute Hematuria; Clarity Clear (Clear); Glucose, Urine (Dipstick) Normal (Negative); Ketone, Urine 20 mg/dL (Negative); Leukocyte Negative Leu/uL (Negative); Nitrite Negative (Negative); Protein, Urine (Dipstick) 300 mg/dL (Neg-Trace); Specific Gravity, Urine 1.015 (1.002-1.036); Squamous Epithelial 0-3 HPF (0-3); Urobilinogen Normal mg/dL (Less than 2); WBC/HPF 0-3 HPF (0-3)
[2024-02-12 13:35] LABS: Amphetamine Not Detected (NotDetected); Barbiturates Screen Not Detected (NotDetected); Benzodiazepine Screen Not Detected (NotDetected); Cocaine Metabolite Screen Not Detected (NotDetected); Methadone Not Detected (NotDetected); Methamphetamine Not Detected (NotDetected); Opiate Screen Not Detected (NotDetected); Oxycodone Screen Not Detected (NotDetected); Phencyclidine (PCP) Not Detected (NotDetected); THC/Cannabinoid Screen Detected (NotDetected); Tricyclic Screen Not Detected (NotDetected)
[2024-02-12 13:37] LABS: Bacteria/HPF 1+ HPF (None Seen)
[2024-02-12 13:38] LABS: Urine Culture Reflex No No
== END 2024-02-12 15:46 | disposition home or self-care (01) ==
LOC: ERS 12:14
DX: R41.82 Altered mental status, unspecified (principal)
CPT/HCPCS: 70450; 80306; 81001; 81025

== ENCOUNTER 2024-02-14 02:25 | Emergency (ER) | payer MEDICARE, MEDICAID ==
[2024-02-14 05:04] LABS: Bacteria/HPF None Seen HPF (None Seen); Bilirubin Negative (Negative); Blood, Urine 1+ (Negative); CAUTI Indications for Culture Alt mental st,lethar; Clarity Clear (Clear); Glucose, Urine (Dipstick) Normal (Negative); Ketone, Urine Trace mg/dL (Negative); Leukocyte Negative Leu/uL (Negative); Nitrite Negative (Negative); Protein, Urine (Dipstick) 300 mg/dL (Neg-Trace); RBC/HPF 0-3 HPF (0-3); Specific Gravity, Urine 1.013 (1.002-1.036); Squamous Epithelial 0-3 HPF (0-3); Urobilinogen Normal mg/dL (Less than 2); WBC/HPF 0-3 HPF (0-3)
[2024-02-14 05:07] LABS: Urine Culture Reflex No No
[2024-02-14 05:11] LABS: #Basophils 0.03 10x3/uL (0.0-0.2); #Eosinophils Less than 0.03 10x3/uL (0.0-0.7); %Basophils 0.2 % (0.0-1.0); %Eosinophils 0.1 % (0.0-10.0); %Lymphocytes 9.7 % (21.0-51.0); %Monocytes 5.1 % (0.0-10.0); %Neutrophils 84.5 % (42.0-75.0); Hematocrit 39.4 % (36.0-47.0); Hemoglobin 13.1 g/dL (12.0-16.0); Mean Corpuscular HGB CONC 33.2 g/dL (32.0-36.0); Mean Corpuscular Hemoglobin 24.8 pg (27.0-31.0); Mean Corpuscular Volume 74.5 fL (78.0-98.0); Mean Platelet Volume 10.2 fL (7.4-10.4); Platelet Count 315 10x3/uL (130-400); RBC Distribution Width 15.2 % (11.5-14.5); Red Blood Cell (RBC) Count 5.29 mill/uL (4.20-5.40)
[2024-02-14 05:23] LABS: ALT (SGPT) 8 U/L (8-55); AST (SGOT) 17 U/L (5-34); Albumin 3.8 g/dL (3.5-5.0); Alkaline Phosphatase 71 U/L (40-110); Anion Gap 14 mmol/L (10-20); BUN (Urea Nitrogen) 15 mg/dL (7.0-18.7); Bilirubin, Total 0.6 mg/dL (0.2-1.2); Calc. Creatinine Clearance 0 mL/min (70-130); Calcium 10.2 mg/dL (7.8-10.44); Carbon Dioxide 25 mmol/L (22-29); Chloride 104 mmol/L (98-107); Estimated GFR 79; Globulin 5.7 g/dL (2.4-3.5); Glucose 129 mg/dL (70-105); Potassium 3.4 mmol/L (3.5-5.1); Protein, Total 9.5 g/dL (6.0-8.3); Sodium 140 mmol/L (136-145)
[2024-02-14 05:29] LABS: Troponin I Less than 0.010 ng/mL (< 0.028)
[2024-02-14 06:00] LABS: Amphetamine Not Detected (NotDetected); Barbiturates Screen Not Detected (NotDetected); Benzodiazepine Screen Not Detected (NotDetected); Cocaine Metabolite Screen Not Detected (NotDetected); Methadone Not Detected (NotDetected); Methamphetamine Not Detected (NotDetected); Opiate Screen Not Detected (NotDetected); Oxycodone Screen Not Detected (NotDetected); Phencyclidine (PCP) Not Detected (NotDetected); THC/Cannabinoid Screen Detected (NotDetected); Tricyclic Screen Not Detected (NotDetected)
[2024-02-14 06:13] LABS: Acetaminophen Less than 10 mcg/mL (Less than 10); Alcohol Less than 10.0 mg/dL (Less than 10); Salicylate Less than 8.0 mg/dL (Less than 8.0)
== END 2024-02-14 06:31 | disposition home or self-care (01) ==
LOC: ERS 02:25
DX: R40.4 Transient alteration of awareness (principal); Z55.6 Problems related to health literacy; Z86.16 Personal history of COVID-19
CPT/HCPCS: 36415; 71045; 80053; 80306; 80307; 81001; 83605; 84484; 85025; 93005

== ENCOUNTER 2025-01-29 14:45 | Inpatient (IN) | payer OTHER ==
[2025-01-29] MEDS ORDERED: HYDROmorphone 0.5 MG/0.5 ML SYRINGE ONE ×2 (15:43→16:52)
[2025-01-29 16:07] LABS: #Basophils Less than 0.03 10x3/uL (0.0-0.2); #Eosinophils 0.10 10x3/uL (0.0-0.7); #Monocytes 0.37 10x3/uL (0.11-0.59); #Neutrophils 4.42 10x3/uL (1.40-6.50); %Basophils 0.3 % (0.0-1.0); %Eosinophils 1.6 % (0.0-10.0); %Lymphocytes 22.4 % (21.0-51.0); %Monocytes 5.8 % (0.0-10.0); %Neutrophils 69.7 % (42.0-75.0); Hematocrit 32.8 % (36.0-47.0); Hemoglobin 10.3 g/dL (12.0-16.0); Mean Corpuscular Hemoglobin 23.5 pg (27.0-31.0); Mean Corpuscular Volume 74.9 fL (78.0-98.0); Platelet Count 269 10x3/uL (130-400); Red Blood Cell (RBC) Count 4.38 mill/uL (4.20-5.40); White Blood Cell (WBC) Count 6.34 10x3/uL (4.8-10.8)
[2025-01-29 16:13] LABS: ALT (SGPT) 9 U/L (Less than 34); AST (SGOT) 21 U/L (11-34); Albumin 3.7 g/dL (3.1-4.5); Alkaline Phosphatase 84 U/L (40-110); Anion Gap 13 mmol/L (10-20); BUN (Urea Nitrogen) 9 mg/dL (7.0-18.7); Bilirubin, Total 0.2 mg/dL (0.3-1.2); Calc. Creatinine Clearance 0 mL/min (70-130); Calcium 9.0 mg/dL (7.8-10.44); Carbon Dioxide 26 mmol/L (22-29); Chloride 105 mmol/L (98-107); Globulin 5.0 g/dL (2.4-3.5); Glucose 87 mg/dL (70-105); Potassium 3.8 mmol/L (3.5-5.1); Sodium 140 mmol/L (136-145)
[2025-01-29] MEDS ORDERED: Cefepime 2 GM VIAL ONE (17:38)
[2025-01-29] MEDS ORDERED: Vancomycin 1 GM/200 ML (FROZEN) BAG ONE (18:36)
[2025-01-29] MEDS ORDERED: Acetaminophen 325 MG TAB PO PRN (19:34)
[2025-01-29 20:16] VITALS: BMI 22.4
[2025-01-29] MEDS: Ketorolac Tromethamine 30 MG (1 mL) VIAL IVP PRN (20:49)
[2025-01-29] MEDS: HYDROcodone/Acetaminophen 7.5/325 mg Tablet PO PRN (22:08)
[2025-01-29 22:33] LABS: Influenza A by NAA Not Detected (NotDetected); Influenza B by NAA Not Detected (NotDetected); SARS-CoV-2 NAA Rapid Test Not Detected (NotDetected)
[2025-01-29] MEDS ORDERED: Melatonin 3 MG TAB PO PRN (22:33)
[2025-01-29] MEDS: HYDROmorphone 0.5 MG/0.5 ML SYRINGE SLOW IVP SCH (23:01)
[2025-01-30] MEDS: Vancomycin 1 GM in Premix 1 BAG IVPB SCH (05:14)
[2025-01-30 06:15] LABS: #Basophils Less than 0.03 10x3/uL (0.0-0.2); #Eosinophils 0.08 10x3/uL (0.0-0.7); #Monocytes 0.45 10x3/uL (0.11-0.59); #Neutrophils 3.35 10x3/uL (1.40-6.50); %Basophils 0.4 % (0.0-1.0); %Eosinophils 1.5 % (0.0-10.0); %Lymphocytes 26.1 % (21.0-51.0); %Monocytes 8.5 % (0.0-10.0); %Neutrophils 63.3 % (42.0-75.0); Hematocrit 30.3 % (36.0-47.0); Hemoglobin 9.5 g/dL (12.0-16.0); Mean Corpuscular Hemoglobin 23.6 pg (27.0-31.0); Mean Corpuscular Volume 75.2 fL (78.0-98.0); Platelet Count 239 10x3/uL (130-400); Red Blood Cell (RBC) Count 4.03 mill/uL (4.20-5.40); White Blood Cell (WBC) Count 5.29 10x3/uL (4.8-10.8)
[2025-01-30] MEDS: Ondansetron PF 4 MG/2 ML Vial IVP PRN (06:21)
[2025-01-30] MEDS: HYDROmorphone 0.5 MG/0.5 ML SYRINGE SLOW IVP SCH (06:21)
[2025-01-30 06:29] LABS: Anion Gap 15 mmol/L (10-20); BUN (Urea Nitrogen) 13 mg/dL (7.0-18.7); Calc. Creatinine Clearance 82 mL/min (70-130); Calcium 9.0 mg/dL (7.8-10.44); Carbon Dioxide 24 mmol/L (22-29); Chloride 110 mmol/L (98-107); Glucose 102 mg/dL (70-105); Potassium 3.9 mmol/L (3.5-5.1); Sodium 145 mmol/L (136-145); Vancomycin, Random 27.7 ug/mL (See Comment)
[2025-01-30] MEDS ORDERED: Lidocaine 1% PF 5 ML VIAL ONE (10:03)
[2025-01-30] MEDS ORDERED: PROPOFOL 40 ML ONE (10:03)
[2025-01-30] MEDS ORDERED: Ondansetron PF 4 MG/2 ML Vial ONE ×2 (10:03→11:45)
[2025-01-30 10:27] LABS: Pregnancy Test - Urine (BHCG) Negative (Negative); Pregu Control Background? CLEAR/WHITE (CLR/WHITE); Pregu Control Bar Appear? YES (CONTROL BAR)
[2025-01-30] MEDS ORDERED: Vancomycin HCl 1.25 GM in Sodium Chloride 0.9% 250 ML 250 ML IVPB SCH (18:00)
[2025-01-30] MEDS: Nitroglycerin 2% Ointment 1 INCH/1 GM Packet TOP SCH (19:45)
[2025-01-30] MEDS ORDERED: Nitroglycerin 2% Ointment 1 INCH/1 GM Packet TOP SCH (21:00)
[2025-01-31 04:24] LABS: #Basophils Less than 0.03 10x3/uL (0.0-0.2); #Eosinophils 0.12 10x3/uL (0.0-0.7); #Monocytes 0.40 10x3/uL (0.11-0.59); #Neutrophils 2.75 10x3/uL (1.40-6.50); %Basophils 0.2 % (0.0-1.0); %Eosinophils 2.6 % (0.0-10.0); %Lymphocytes 29.6 % (21.0-51.0); %Monocytes 8.6 % (0.0-10.0); %Neutrophils 58.8 % (42.0-75.0); Hematocrit 34.7 % (36.0-47.0); Hemoglobin 11.3 g/dL (12.0-16.0); Mean Corpuscular Hemoglobin 24.0 pg (27.0-31.0); Mean Corpuscular Volume 73.7 fL (78.0-98.0); Platelet Count 144 10x3/uL (130-400); Red Blood Cell (RBC) Count 4.71 mill/uL (4.20-5.40); White Blood Cell (WBC) Count 4.67 10x3/uL (4.8-10.8)
[2025-01-31 04:53] LABS: Anion Gap 15 mmol/L (10-20); BUN (Urea Nitrogen) 11 mg/dL (7.0-18.7); Calc. Creatinine Clearance 85 mL/min (70-130); Calcium 8.7 mg/dL (7.8-10.44); Carbon Dioxide 22 mmol/L (22-29); Chloride 107 mmol/L (98-107); Glucose 86 mg/dL (70-105); Potassium 4.3 mmol/L (3.5-5.1); Sodium 140 mmol/L (136-145)
[2025-01-31 08:27] VITALS: BP 135/80; TEMP 98.6
== END 2025-01-31 17:06 | disposition home or self-care (01) | DRG 514 ==
LOC: ERS 14:45 → T4-A 19:21 → OBSVTOIN 19:34
PROVIDERS: ADMIT Family Medicine; ATTEND Family Medicine
PROC: 3E03329 Introduction of Other Anti-infective into Peripheral Vein, Percutaneous Approach (ICD-10-PCS; 2025-01-29)
PROC: 0X6S0Z2 Detachment at Right Ring Finger, Mid, Open Approach (ICD-10-PCS; principal; 2025-01-30)
DX: I73.01 Raynaud's syndrome with gangrene (principal); Z88.5 Allergy status to narcotic agent; Z88.8 Allergy status to other drugs, medicaments and biological substances; Z91.018 Allergy to other foods; Z98.890 Other specified postprocedural states; M34.9 Systemic sclerosis, unspecified; Z79.899 Other long term (current) drug therapy
CPT/HCPCS: 36415; 80048; 80053; 80202; 81025; 85025; 86141; 87081; 87636; 88305; 88311; 96365; 96367; 96375; 96376; J0169; J0665; J0692; J1171; J1885; J2250; J2550; J2704; J3373; Q0169